=== PATIENT | male | born 1995 ===

== ENCOUNTER 2016-12-10 12:18 | Emergency (ER) | payer SELFPAY ==
--- NOTE | 2017-01-26 18:34 | ER ---
ADMIT: 12/10/2016 RM/LOC: ER [facility] MR#: [id number] [id number] [place] [place] [address] Emergency Room Report SEX: M AGE: 21 : 1995 DATE: 12/10/2016 ADDENDUM: This patient comes to the ER because he is having severe itching. He stayed at his grandmother's house and now he has itching everywhere and some of the areas that he is scratching seemed to becoming infected. Most of this is occurring in his upper extremities and his lower extremities especially in his calf. PAST MEDICAL HISTORY: Denies significant disease. MEDICATIONS: None. ALLERGIES: NONE. SOCIAL HISTORY: The patient smokes half pack of cigarettes a day, occasionally uses alcohol, comes into the ER with his mother. REVIEW OF SYSTEMS: CONSTITUTIONAL: No fevers. RESPIRATORY: No cough. GASTROINTESTINAL: No vomiting or diarrhea. All rest review of systems are negative. PHYSICAL EXAMINATION: GENERAL: This is an alert 21-year-old, male. VITAL SIGNS: Temperature is 98.3, pulse is 81, respirations 18, and blood pressure is 106/73. On physical exam, the patient has quite a bit of irritated scratching rash area on his lower calves on the front of his shins. There are areas where he has scratched so much that he has early signs of cellulitis. The murphy on his arms also are consistent with a dry raised area that he has been scratching. They do appear to fall in a small line consistent with a scabies-type infection. DIAGNOSES: 1. Scabies. 2. Cellulitis. The patient had normal vital signs. I started him on Keflex 500 mg and Bactrim DS b.i.d. for 7 days. I also wrote a prescription for permethrin, which he is supposed to use, keep on it for 12 hours, wash and then repeat in a week. He is to follow up with his primary if he has increased redness, fevers, or not keeping the medication down. Please see my T-sheet. KATHARINA Dominguez / Yosi Singleton MD / pennyl JOB #: [id number] CC: Yosi Singleton MD, Attending Physician Gaudencio Myers MD, Family Physician
== END 2016-12-10 15:23 | disposition home or self-care (01) ==
LOC: ER 12:18
DX: L03.116 Cellulitis of left lower limb (principal); L03.115 Cellulitis of right lower limb; B86 Scabies; F17.210 Nicotine dependence, cigarettes, uncomplicated

== ENCOUNTER 2017-07-14 20:07 | Emergency (ER) | payer SELFPAY ==
--- NOTE | 2017-07-15 14:46 | ER ---
ADMIT: 07/14/2017 RM/LOC: ER [facility] MR#: [id number] [address] [address] [place] [address] Emergency Room Report SEX: M AGE: 22 : 1995 DATE: 07/14/2017 CHIEF COMPLAINT/HISTORY OF PRESENT ILLNESS: Abdominal pain in the left lower quadrant, 2 days now. "I think I have a hernia disease." The patient giving me the complaints. He has had some fever as well. Similar symptoms in the past, he said no. REVIEW OF SYSTEMS: All negative. PAST MEDICAL HISTORY: Negative as well. PHYSICAL EXAMINATION: VITAL SIGNS: Blood pressure 112/74, heart rate 95, respirations 16, temperature is 101, and O2 saturation is 100%. GENERAL: Mildly anxious. ABDOMEN: Examination of the left lower quadrant, there is a cord-like area in the left lower abdomen into the groin area at the left inguinal segment. Abdomen is thin. BACK: Normal inspection. Kyphotic. SKIN: Good color. EXTREMITIES: Well perfused. IMAGING: Ultrasound of testicles, a small hydrocele with inguinal lymph nodes. LABORATORY DATA: White count 12.5, hemoglobin 13, and hematocrit is 37. Urine has blood trace and 27 wbc's. Potassium is 3.5. CLINICAL IMPRESSION: Small hydrocele and reactive lymph nodes in the left inguinal area. He will be receiving antibiotic first dose in the ER. Encouraged to follow up with Dr. Bonds for further evaluation and reexamination. The patient verbalized understanding. Originally, he screened positive for SIRS criteria, and so labs were done accordingly. He is discharged home. KATHARINA Gandara / Froy Preciado MD / evaristo JOB #: [id number] CC: Froy Preciado MD, Attending Physician Toya Bonds MD, Family Physician
== END 2017-07-15 00:30 | disposition home or self-care (01) ==
LOC: ER 20:07
DX: N43.3 Hydrocele, unspecified (principal); R59.0 Localized enlarged lymph nodes; F17.210 Nicotine dependence, cigarettes, uncomplicated